=== PATIENT | female | born 1940 | race Caucasian/White ===

== ENCOUNTER 2016-12-17 10:21 | Day surgery (SDC) | payer MEDICARE, BC ==
[~2016-12-17] VITALS: Ht 170.2 cm; Wt 83.9 kg
[2016-12-17] MEDS ORDERED: NS 1000P @30 MLS/HR (KVO) IV SCH (11:00)
[2016-12-17 11:17] VITALS: BP 168/87; PULSE 55; RESP 18; TEMP 98.1; O2SAT 96
[2016-12-17] MEDS ORDERED: ASPI-119 (11:24)
[2016-12-17] MEDS ORDERED: POTA10CA PO (11:24)
[2016-12-17] MEDS ORDERED: FLUV40CA3 PO (11:24)
[2016-12-17] MEDS ORDERED: FISH500C (11:24)
[2016-12-17] MEDS ORDERED: SYNT175T PO (11:24)
[2016-12-17] MEDS ORDERED: CARV12.5 PO (11:24)
[2016-12-17] MEDS ORDERED: VITA100021 SL (11:24)
[2016-12-17] MEDS ORDERED: IRBE300T11 PO (11:24)
[2016-12-17] MEDS ORDERED: CANA1TAB PO (11:24)
[2016-12-17 12:05] LABS: BASOPHIL % 0.7 % (0.0-2.0); EOSINOPHIL # 0.2 TH/MM3 (0-0.4); EOSINOPHIL % 3.1 % (0.0-4.0); HEMATOCRIT 44.3 % (35.0-46.0); HEMO FLAGS DIFF FINAL; LYMPH % 29.3 % (9.0-44.0); LYMPHOCYTE # 1.6 TH/MM3 (1.0-4.8); MEAN CELL VOLUME 83.5 FL (80.0-100.0); MEAN CORPUSCULAR HEMOGLOBIN 27.1 PG (27.0-34.0); MEAN CORPUSCULAR HGB CONC 32.5 % (32.0-36.0); NEUT % 54.9 % (16.0-70.0); PLATELET COUNT 195 TH/MM3 (150-450); RED BLOOD COUNT 5.31 MIL/MM3 (4.00-5.30); RED CELL DISTRIBUTION WIDTH 14.5 % (11.6-17.2); WHITE BLOOD COUNT 5.5 TH/MM3 (4.0-11.0)
[2016-12-17 12:13] LABS: APTT (PATIENT) 23.8 SEC (24.3-30.1)
[2016-12-17] MEDS ORDERED: HEPARIN-NS/PF INJ 500 ML ONE (12:24)
[2016-12-17 12:29] LABS: BICARBONATE 25.9 MEQ/L (21.0-32.0); POTASSIUM 4.8 MEQ/L (3.5-5.1)
[2016-12-17] MEDS ORDERED: HYDROCORTISONE SOD SUCCINATE 100 MG VIAL ONE (12:35)
[2016-12-17] MEDS ORDERED: diphenhydrAMINE HCL 50 MG/ML VIAL ONE (12:35)
[2016-12-17] MEDS ORDERED: SODIUM NITROPRUSSIDE 50 MG/2 ML VIAL ONE (12:44)
[2016-12-17] MEDS ORDERED: FUROSEMIDE 40 MG/4 ML VIAL ONE (12:53)
[2016-12-17] MEDS ORDERED: IOHEXOL 350 MG/ML 100 ML BTL (for Cath Lab) OTHER ONE (13:00)
[2016-12-17] MEDS ORDERED: BACITRACIN OINT 0.9 GM PKT TOP ONE (14:00)
[2016-12-17] MEDS ORDERED: MISC INFORMATION XX ONE (14:00)
[2016-12-17] MEDS ORDERED: SODIUM CHLORIDE 0.9% FLUSH 10 ML FLUSH PRN (14:00)
--- NOTE | 2016-12-17 14:25 | MA ---
cc: MARIA A AMIN M.D. DATE: 12/17/2016 PROCEDURE Left heart catheterization, left ventricular coronary angiography. INDICATIONS Unstable angina, [place] [employer] class IV angina, diabetes mellitus, multiple cardiac risk factors. DETAILS OF PROCEDURE The patient was brought to the cardiac catheterization laboratory, prepped and draped in the usual sterile fashion. 10 cc of 1% lidocaine was used to locally anesthetize the right common femoral artery. A 4-Iranian sheath was successfully placed in the right common femoral artery. 4-Iranian JR4 and JL5 catheters were used for perform left and right coronary angiography and left ventriculography. FINDINGS LEFT VENTRICULOGRAPHY The LV pressure is 230/8-9. Ejection fraction 60%. CORONARY ANGIOGRAPHY The right coronary artery is dominant. There are minimal luminal irregularities throughout the proximal to mid segment up to 5-10% angiographically. The left main coronary artery has no significant disease angiographically. The mid AV groove left circumflex vessel has a 40-50% stenosis. The marginal vessel at the bifurcation is medium to large in size. The LAD is transapical with mild disease in the midsegment to 5-10% angiographically. CONCLUSIONS 1. Angiographically mild to moderate three-vessel coronary artery disease in a right dominant system. 2. Normal LV systolic function. 3. Markedly elevated blood pressure with LV pressure of 230/8-9. Note, I did fluoroscopic imaging of the renal arteries. The left renal artery had no significant obstructive disease. The right renal artery was ectatic in the mid to distal segment but no obvious significant obstruction at that segment. The ostium was suboptimally imaged but no obviously significant obstruction. There was possibly disease up to 40% angiographically. RECOMMENDATIONS Recommend medical management for coronary artery disease and cardiac risk factor modification. MD JUSTIN Morales/DIYA /1:02 PM /2:12 PM
--- NOTE | 2016-12-17 15:58 | EKG ---
Date Performed: 12/17/2016 Time Performed: 11:36:10 PTAGE: 76 years EKG: Sinus bradycardia. Poor R wave progression - probable normal variant Borderline ECG NO PREVIOUS TRACING DOCTOR: Roger Lucio Interpretating Date/Time 12/17/2016 15:57:27
[2016-12-17] MEDS ORDERED: SODIUM CHLORIDE 0.9% FLUSH 10 ML FLUSH SCH (21:00)
== END 2016-12-17 17:45 | disposition home or self-care (01) ==
LOC: HCAT 10:21 → HDIC 10:22 → HCAT 17:45
PROVIDERS: ATTEND Internal Medicine Interventional Cardiology
DX: I25.110 Atherosclerotic heart disease of native coronary artery with unstable angina pectoris (principal); I15.0 Renovascular hypertension; I77.73 Dissection of renal artery; I34.0 Nonrheumatic mitral (valve) insufficiency; E78.5 Hyperlipidemia, unspecified; E11.9 Type 2 diabetes mellitus without complications
CPT/HCPCS: 36252; 80048; 85025; 85610; 85730; 93005; 93458; C1769; C1893; J1200; J1644; J1720; J1940; Q9967